=== PATIENT | male | born 1990 | race Caucasian/White ===

== ENCOUNTER 2020-03-28 11:51 | Emergency (ER) | payer OTHER ==
[2020-03-28 12:04] VITALS: BP 145/89
--- NOTE | 2020-03-28 12:17 | ED Physician Documentation ---
PD HPI LOWER EXT INJURY - Stated complaint Stated Complaint: RT ANKLE INJ - Chief complaint Chief Complaint: Ext Problem - History obtained from History obtained from: Patient - History of Present Illness PD HPI LOW EXT INJURY LOCATION: Right, Ankle, Foot Type of injury: Twist Where injury occurred: Home Timing - onset: Last night Timing - duration: Hours (17) Timing - details: Abrupt onset Pain level max: 7 Pain level now: 6 Improved by: Rest, Ice, Immobilization Worsened by: Moving, Palpating Associated symptoms: No: Weakness, Numbness, Tingling, Swelling, Discolored Contributing factors: No: Anticoagulated, Prior ortho surgery, Prosthetic joint Recently seen: Not recently seen Review of Systems Ten Systems: 10 systems reviewed and negative Constitutional: denies: Fever, Chills Nose: denies: Rhinorrhea / runny nose, Congestion GI: denies: Vomiting, Diarrhea : denies: Dysuria Skin: denies: Rash Musculoskeletal: denies: Neck pain, Back pain Neurologic: denies: Headache PD PAST MEDICAL HISTORY - Past Medical History Past Medical History: No - Past Surgical History Past Surgical History: No - Present Medications Home Medications: Ambulatory Orders Medication Instructions Recorded Confirmed No Known Home Medications 03/28/20 03/28/20 - Allergies Allergies/Adverse Reactions: Allergies Allergy/AdvReac Type Severity Reaction Status Date / Time No Known Drug Allergies Allergy Verified 03/28/20 12:04 - Living Situation Living Situation: reports: With family Living Arrangement: reports: At home - Family History Family history: reports: Non contributory PD ED PE NORMAL - Vitals Vital signs reviewed: Yes - General General: Alert and oriented X 3, No acute distress - HEENT HEENT: Moist mucous membranes - Neck Neck: Supple, no meningeal sign - Derm Derm: Warm and dry - Extremities Extremities: Other (R ankle - TTP over the lateral malleolus and base of the 5th MT. NVI. no deformity. ) - Neuro Neuro: Alert and oriented X 3 - Psych Psych: Normal mood, Normal affect Results - Vitals Vitals: Vital Signs - 24 hr 03/28/20 11:55 Temperature 36.9 C Heart Rate 84 Respiratory 20 Rate Blood Pressure 145/89 H O2 Saturation 97 Oxygen O2 Source Room air - Rads (name of study) R ankle xray Radiology: Prelim report reviewed, EMP read contemporaneously, See rad report R foot xray Radiology: Prelim report reviewed, EMP read contemporaneously, See rad report PD MEDICAL DECISION MAKING - ED course Complexity details: reviewed results, re-evaluated patient, considered differential, d/w patient ED course: 29-year-old male presents the emergency department with a right ankle sprain. No acute findings on x-ray of the foot or ankle. Given crutches and an air splint. Will utilize Motrin and Tylenol at home for pain. Patient counseled regarding signs and symptoms for which I believe and urgent re-evaluation would be necessary. Patient with good understanding of and agreement to plan and is comfortable going home at this time This document was made in part using voice recognition software. While efforts are made to proofread this document, sound alike and grammatical errors may occur. Departure - Departure Disposition: 01 Home, Self Care Clinical Impression: Right ankle sprain Qualifiers: Encounter type: initial encounter Involved ligament of ankle: unspecified ligament Qualified Code(s): S93.401A - Sprain of unspecified ligament of right ankle, initial encounter Condition: Good Instructions: ED Sprain Ankle Follow-Up: your,doctor in 1 week [Other] Comments: Your xrays do not show any acute abnormalities today. Return if you worsen. You may bear weight as tolerated. If you are still having symptoms in 1 week, your doctor should repeat your xrays.
--- NOTE | 2020-03-28 12:33 | XRAY Report ---
PROCEDURE: Foot 3 View RT INDICATIONS: fall, ankle/foot pain TECHNIQUE: 3 views of the foot were acquired. COMPARISON: Correlation is made with the accompanying ankle plain films, 03/28/2020. FINDINGS: Bones: No fractures or dislocations. No suspicious bony lesions. Soft tissues: No tibiotalar joint effusion. Achilles tendon appears normal. IMPRESSION: No displaced fractures are detected. Reviewed by: Dio Huertas MD on 03/28/2020 11:32 AM GUSTAVO Approved by: Dio Huertas MD on 03/28/2020 11:32 AM GUSTAVO Station ID: [id number]
--- NOTE | 2020-03-28 12:34 | XRAY Report ---
PROCEDURE: Ankle 3 View RT INDICATIONS: fall, ankle/foot pain TECHNIQUE: 3 views of the ankle were acquired. COMPARISON: Correlation is made with the accompanying foot plain films, 03/28/2020. FINDINGS: Bones: No fractures or dislocations. Ankle mortise is normally aligned. No suspicious bony lesions . The talar dome demonstrates an unremarkable appearance. Soft tissues: No tibiotalar joint effusion. Achilles tendon appears normal. IMPRESSION: No displaced fractures are seen on this plain film. In this patient with a given history of trauma, please correlate with focal tenderness. If clinically appropriate, please consider a short-term follow-up plain films series versus a dedicated CT study. Reviewed by: Dio Huertas MD on 03/28/2020 11:33 AM GUSTAVO Approved by: Dio Huertas MD on 03/28/2020 11:33 AM GUSTAVO Station ID: [id number]
== END 2020-03-28 12:52 | disposition home or self-care (01) ==
LOC: ED 11:51
DX: S93.401A Sprain of unspecified ligament of right ankle, initial encounter (principal); X50.1XXA Overexertion from prolonged static or awkward postures, initial encounter; Y92.009 Unspecified place in unspecified non-institutional (private) residence as the place of occurrence of the external cause
CPT/HCPCS: 99282; 99283

== ENCOUNTER 2022-12-27 15:27 | Outpatient (CLI) | payer OTHER ==
--- NOTE | 2022-12-27 15:41 | Sleep Patient Instructions ---
Sleep Center Visit Summary - Patient Visit Information Reason for Visit: Initial consult for evaluation of sleep disordered breathing and other sleep issues. - Patient Instructions Instructions Attached: Sleep Study, Sleep Clinic Visit, Sleep Study Home Monitor Additional Instructions: You will be completing a sleep study, either an in-lab polysomnography (PSG) or home sleep study (HST). You will follow-up in the sleep care office after the sleep study is completed to hear the results and talk about therapy, if needed. You will be called by our office staff to schedule this appointment, but you may contact us with any questions. - Clinic Information Contact: [facility] [address] [place] [address] [email or web address] T: [phone]
--- NOTE | 2022-12-27 16:10 | SLEEP CARE CONSULTATION ---
Information from patient questionnaire entered by Anam Vaca. I have reviewed and concur with the information entered by Anam Vaca. This document represents the service I personally performed and the decisions made by me, Anabel Dobson ARNP. 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 denies: Choking, Gasping for air Toss, Turn, or Twitch while sleeping: Yes Recalls having dreams: Yes (has nightmares) Usually gets out of bed at: [id number] Feels refreshed in the morning: Yes Morning headache: No Sleepy or fatigued during the day: Yes Ever fallen asleep while driving: No Takes day naps: Yes (working nights, 1-2 hrs about 1-2 days a week) Dreams during day naps: No Prior sleep studies: No Additional HPI information: I had the pleasure of seeing SHARLENE HARRISON today regarding the possibility of him having a sleep disorder. His current complaints are frequent night awakenings, insomnia and snoring. His has told him that he snores. He states he has difficulty falling asleep if he does not take melatonin 5 mg. He can fall asleep 30-60 minutes with the melatonin. Without the melatonin, it can be 1 hour to 2 hours to fall asleep. He will wake up 1-3 times a nights. He will wake up due to nightmares (2 times a week average), noise, dog movements or bathroom. He has woke up snoring "a handful of times in the last few years". He states that he does wake up feeling rested normally in the morning unless he has only got a few hours sleep. He is currently on a housetrailer servicer in the last month for work. 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 He states his father has sleep apnea for which he uses a CPAP. 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 Patient is and lives in [place]. Have you smoked in the past 12 months: No Years of smokin Quit date: 2020 Alcohol use: Yes Alcohol amount and frequency: 1-8 BEERS 1-2 X WEEK Caffeine use: Yes Caffeine amount and frequency: TEA EVERYDAY Family History Family history of sleep disordered breathing: Yes Family Hx Sleep Apnea: Father: Snoring, Sleep apnea - Treated Allergies and Home Medications Known drug allergies: No Drug allergies reviewed: Yes Home medication list reviewed: Yes (taking supplements; MVT, Turmeric, potassium, melatonin as needed) Allergy and home medication list: Allergies No Known Drug Allergies Allergy (Verified 12/26/22 09:49) Review of Systems Weight gain over past 5 years: 12 Cardiovascular: denies: high blood pressure Gastrointestinal: reports: heartburn Neurological: denies: headaches Psychiatric: denies: anxiety, depression, mood disorder Ear/Nose/Throat: reports: wisdom teeth removed. denies: tonsillectomy Musculoskeletal: reports: joint pain, neck pain, back pain Immunologic: reports: allergies to food or environment (cats) Physical Exam Vital signs obtained and entered by: ANAM Sanabria MA Blood Pressure: 124/70 (LEFT ARM) Cuff size: regular Heart Rate: 68 O2 Saturation: 98 Height: 6 ft 5 in Weight: 228 lb Body Mass Index: 27.0 BMI Classification: Overweight Neck circumference: 17.5 Mouth and throat: normal Soft palate: long Hard palate: normal Uvula: normal Uvula visualization: 50% Mallampati Class II Tongue: enlarged in size with teeth minor on lateral edges Tonsils: 1+ Neck: normal w/o lymphadenopathy or thyromegaly Heart: regular rate and rhythm Lungs: clear bilaterally Impression and Plan 1. Suspected Obstructive Sleep Apnea-Hypopnea Syndrome, as suggested by a history of loud and irregular snoring, frequent awakening during the night, and insomnia. Narrow oropharynx and obesity are common predisposing factors for obstructive sleep apnea-hypopnea syndrome. I recommend proceeding to polysomnography to confirm the diagnosis and to assess severity. If the patient has significant sleep disordered breathing, a manual CPAP titration study will also be performed to find the optimal treatment pressure. I informed the patient of what the sleep studies involve and after some discussion, obtained agreement to proceed. The pathophysiology of obstructive sleep apnea-hypopnea syndrome was discussed with the patient and health risks of cardiovascular and cerebrovascular disease if not treated. 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 Patient agreed to plan. * Schedule polysomnography +- manual CPAP titration study and return in 1-2 weeks after the study to discuss result and initiate therapy. * Avoid long distance driving or driving when feeling sleepy. * Avoid alcohol, sedative and muscle relaxant around bedtime. * Attempt to lose weight. * Review instructions provided by trained office staff on how to prepare for the sleep study. * Return for follow-up after sleep study completed. Counseling Topics: Weight loss health impact Visit Type: In Office Provider Statement: I spent 100% of the Face to Face Visit with the patient with greater than 50% spent counseling the patient and coordination of care.
[2022-12-27 16:11] VITALS: BP 124/70
== END 2022-12-27 15:28 | disposition home or self-care (01) ==
LOC: SC 15:27
PROVIDERS: ATTEND Nurse Practitioner Family
DX: R06.83 Snoring (principal); G47.00 Insomnia, unspecified; G47.8 Other sleep disorders; E66.3 Overweight; Z68.27 Body mass index [BMI] 27.0-27.9, adult; Z87.891 Personal history of nicotine dependence
CPT/HCPCS: 99203; 99212

== ENCOUNTER 2023-02-17 14:40 | Outpatient (CLI) | payer OTHER | END 2023-02-17 14:41 | disposition home or self-care (01) | LOC: SC 14:40 | PROVIDERS: ATTEND Nurse Practitioner Family | DX: R00.0 Tachycardia, unspecified (principal) | CPT/HCPCS: 95806 ==

== ENCOUNTER 2023-03-27 15:11 | Outpatient (CLI) | payer OTHER ==
--- NOTE | 2023-03-27 15:51 | SLEEP CARE CONSULTATION ---
Information from patient questionnaire entered by Anam Vaca. I have reviewed and concur with the information entered by Anam Vaca. This document represents the service I personally performed and the decisions made by me, Casey Wells MD, [facility]. History of Present Illness Service Date and Time: 03/27/2023 1511 Reason for follow up: one month (F/U ON INSOMNIA) Prior sleep studies: No Type of Sleep Study: Home sleep study (COMPLETED 02/17/23) HPI additional information: Mr. Gibson complains of sleep onset insomnia and frequent awakenings. He had a home sleep apnea test (HSAT) last month that was negative for sleep-related breathing disorder. However, he said he did not sleep much. 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 His sleep log shows bedtime of around 10 pm to midnight, except on weekends where he goes to bed as late as 3 am. He gets up at 5:30 am on weeknights and 8 am on weekends. It takes him 15 to 60 minutes to fall asleep with melatonin and alcohol. Sleep Study - Results Type of Sleep Study: Home sleep study (COMPLETED 02/17/23) Prior sleep studies: No Subjective Initial Fisher Sleepiness Scale score: 6 (12/27/22) Current Fisher Sleepiness Scale score: 3 (03/27/23) Allergies and Home Medications Drug allergies reviewed: Yes Home medication list reviewed: Yes Allergy and home medication list: Allergies No Known Drug Allergies Allergy (Verified 03/24/23 11:05) Review of Systems Review of systems same as previous: Yes Physical Exam Vital signs obtained and entered by: ANAM Sanabria MA Blood Pressure: 112/68 (LEFT ARM) Cuff size: regular Heart Rate: 69 O2 Saturation: 98 Height: 6 ft 5 in Weight: 228 lb Body Mass Index: 27.0 BMI Classification: Overweight Impression and Plan IMPRESSION: 1. Insomnia, due to delayed sleep phase syndrome. His true circadian rhythm is that of the weekend where he goes to bed late and wakes up late. He was advised to get up about the same time on the weekends. Because according to him, he did not sleep much during the HSAT, it is possible that the test is falsely negative for sleep-related breathing disorder. I will order an in-laboratory polysomnography. PLAN: 1. Schedule an in-laboratory polysomnography. 2. Maintain a regular wake up time and spend no more than 8 hours in bed at night. Avoid naps. 3. Return for follow up after the sleep study. Follow up with Sleep Care in: 1-2 months Visit Type: In Office Time Spent with Patient (minutes): 15 Provider Statement: I spent 100% of the Face to Face Visit with the patient with greater than 50% spent counseling the patient and coordination of care.
[2023-03-27 15:58] VITALS: BP 112/68; O2SAT 98
== END 2023-03-27 15:12 | disposition home or self-care (01) ==
LOC: SC 15:11
PROVIDERS: ATTEND Internal Medicine Pulmonary Disease
DX: G47.21 Circadian rhythm sleep disorder, delayed sleep phase type (principal); G47.00 Insomnia, unspecified; E66.3 Overweight; Z68.27 Body mass index [BMI] 27.0-27.9, adult
CPT/HCPCS: 99212

== ENCOUNTER 2023-06-21 13:43 | Outpatient (CLI) | payer OTHER ==
--- NOTE | 2023-06-21 14:15 | Sleep Patient Instructions ---
Sleep Center Visit Summary - Patient Visit Information Reason for Visit: Sleep study followup - Patient Instructions Additional Instructions: Your sleep study today was negative for significant sleep disordered breathing. You were found to have episodes of snoring. There are different ways to control snoring including weight loss, oral devices made by a dentist or surgical options through ENT specialist. You should not use oral devices that do not fit properly because they can affect your bite. You should also check insurance coverage of oral devices for snoring because they may not be cover well. You may obtain a referral to an ENT specialist through your primary provider. Follow-up as needed. - Clinic Information Contact: [facility] [address] [place] [id number] [email or web address] T: [phone]
--- NOTE | 2023-06-21 14:17 | SLEEP CARE CONSULTATION ---
Information from patient questionnaire entered by Marlin Vaca. I have reviewed and concur with the information entered by Marlin Vaca. This document represents the service I personally performed and the decisions made by , Anabel Dobson ARNP. History of Present Illness Service Date and Time: 06/21/2023 1343 Initial [place] Sleepiness Scale score: 6 (12/27/22) Current [place] Sleepiness Scale score: 6 (06/21/23) Additional HPI information: SHARLENE HARRISON returns for follow up and results of the recently performed polysomnography. The patient was informed of the following findings: No significant sleep disordered breathing with an average AHI of 0.8 and christian oxygen saturation of 90%. I explained the pathophysiology behind obstructive sleep apnea. Patient does not have sleep apnea and was advised how weight gain could increase the risk of developing sleep apnea in the future. I strongly encouraged the patient to lose weight. Patient has light snoring. Snoring can be reduced by weight loss. Weight loss is best achieved with diet consult. Patient instructed to contact PCP for referral. Snoring can also be treated with an oral appliance from a dentist. Advised to check insurance coverage. In addition, an ENT evaluation can be do to see if other treatment is indicated. Patient counseled not drink alcohol less than 4 hours before bedtime as it can increase snoring and apnea. Patient was cautioned about risks of drowsy driving until sleepiness symptoms resolve. Patient denies drowsy driving. Sleep Study - Results Type of Sleep Study: Polysomnography (COMPLETED 02/17/23 COMPLETED 05/08/23) Prior sleep studies: No Polysomnography/Home Sleep Study results: IMPRESSION: The quality of the study is good. The patient had normal sleep efficiency. The sleep architecture was relatively normal as well considering the first night effect. Respiratory monitoring showed no significant sleep disordered breathing (AHI = 0.8) or hypoxia (christian oxygen saturation of 90%). The patient slept mostly supine (supine AHI = 1.5; non-supine = 0.00). Snore was infrequent and light in intensity. There was no significant periodic leg movement of sleep. Cardiac rhythm was normal sinus rhythm without significant arrhythmia. No abnormal behavior (parasomnia) observed during the night. Allergies and Home Medications Known drug allergies: No Drug allergies reviewed: Yes Home medication list reviewed: Yes (no changes) Allergy and home medication list: Allergies No Known Drug Allergies Allergy (Verified 06/20/23 15:29) Review of Systems Review of systems same as previous: Yes (NO CHANGE) Physical Exam Vital signs obtained and entered by: MARLIN Sanabria MA Blood Pressure: 118/72 (LEFT ARM) Cuff size: regular Heart Rate: 72 O2 Saturation: 98 Height: 6 ft 5 in Weight: 228 lb 6.4 oz Body Mass Index: 27.1 BMI Classification: Overweight Impression and Plan 1. Snoring but no significant sleep disordered breathing. Patient advised that often weight loss will reduce snoring as well as apnea risk. An oral appliance can also be used for snoring. This would require a dental consultation. Patient cautioned not to use other online appliances as can cause bite issues. A list of accredited dentists in [facility] and one local dentist who makes oral appliances is available in office as needed. Patient is advised to check if insurance will cover. An ENT consult can also be helpful to determine if any other treatment is an option. 2. Overweight, unspecified. Currently patients BMI is 27.1. Obesity increases the risk of apnea, CPAP pressure requirements and overall health risks especially cardiovascular and diabetes. Thus patient is advised to lose weight. * Attempt to lose weight * Avoid alcohol consumption near bedtime * Return as needed for follow up. Counseling Topics: Weight loss health impact Follow up with Sleep Care in: as needed Visit Type: In Office Time Spent with Patient (minutes): 10 Provider Statement: I spent 100% of the Face to Face Visit with the patient with greater than 50% spent counseling the patient and coordination of care.
[2023-06-21 14:20] VITALS: BP 118/72; O2SAT 98
== END 2023-06-21 13:44 | disposition home or self-care (01) ==
LOC: SC 13:43
PROVIDERS: ATTEND Nurse Practitioner Family
DX: R06.83 Snoring (principal); E66.3 Overweight; Z68.27 Body mass index [BMI] 27.0-27.9, adult
CPT/HCPCS: 99212